=== PATIENT | male | born 1975 | race Caucasian/White ===

== ENCOUNTER 2019-02-16 23:32 | Emergency (ER) | payer OTHER ==
[2019-02-17] MEDS ORDERED: Ketorolac 60 MG/2 ML SDV IM ONE (00:02)
--- NOTE | 2019-02-17 00:09 | EDM.PDOC ---
ED HPI GENERAL MEDICAL PROBLEM - General Chief Complaint: Lower Extremity Injury/Pain Stated Complaint: PT HAS SWOLLEN LT ANKLE Time Seen by Provider: 02/16/19 23:54 - History of Present Illness INITIAL COMMENTS - FREE TEXT/NARRATIVE: HISTORY AND PHYSICAL: History of present illness: The patient is a 43-year-old male with multiple medical problems including CHF diabetes hypertension who is currently on warfarin therapy and presents with concerns about some swelling to the dorsal aspect of his left foot without pain and pain in his left knee. The patient has no chest pain or shortness of breath and says that he has had issues with his left knee locking up and feeling like it's going to hyperextend. There's been no swelling or warmth and he is concerned about his knee and would like evaluation. He is also concerned about swelling in the dorsal aspect of his left foot which is very localized as he has congestive heart failure and he is worried that he is having congestive heart failure. He also has a history of gout but says that this does not feel like his gout. Patient has crutches at home and says he was told that one of his knees had a meniscus tear is not sure if it is the left one. He does do a lot of walking stairclimbing bending and lifting at work and he is not sure if he aggravated it but he has not had any direct trauma to it that he is aware of. The patient tells me that he has had an MRI in the distant past of his knee but nothing recently. Review of systems: As per history of present illness and below otherwise all systems reviewed and negative. Past medical history: As per history of present illness and as reviewed below otherwise noncontributory. Surgical history: As per history of present illness and as reviewed below otherwise noncontributory. Social history: No reported history of drug or alcohol abuse. Family history: As per history of present illness and as reviewed below otherwise noncontributory. Physical exam: General: Well-developed well-nourished man who is nontoxic and vital signs are noted by me HEENT: Atraumatic, normocephalic, negative for conjunctival pallor or scleral icterus, mucous membranes moist, throat clear, neck supple, nontender, trachea midline. Lungs: Clear to auscultation, breath sounds equal bilaterally, chest nontender. No diminished air exchange no rales no wheezing or work or breathing Heart: S1S2, regular rate and rhythm no overt JVD clicks or rubs Abdomen: Soft, nondistended, nontender. Negative for masses or hepatosplenomegaly. NABS. Pelvis: Stable nontender. Genitourinary: Deferred. Rectal: Deferred. Extremities: Atraumatic, negative for cords or calf pain. Neurovascular unremarkable. He was only trace pedal edema and no leg asymmetry. There is some ill-defined soft tissue swelling of the dorsal aspect of left foot without any bony deformities crepitus defects or tenderness. At the left knee there is no fluid noted joint effusion no swelling no erythema no palpable bony deformities and the patient can range of motion. Neuro: Awake, alert, oriented. Cranial nerves II through XII unremarkable. Cerebellum unremarkable. Motor and sensory unremarkable throughout. Exam nonfocal. Diagnostics: X-ray left knee Therapeutics: Neoprene sleeve, patient has his own crutches, Toradol As the patient is on anticoagulation therapy I will only given him a few diclofenac for home and have advised close follow-up with the orthopedics clinic. He does have tramadol he can also use Impression: Left knee pain, medical evaluation of soft tissue swelling of foot stable Definitive disposition and diagnosis as appropriate pending reevaluation and review of above. Left Knee Pain Score (Numeric/FACES): 6 - Related Data Allergies Allergy/AdvReac Type Severity Reaction Status Date / Time No Known Allergies Allergy Verified 02/16/19 23:54 Home Meds: Home Meds Furosemide 20 mg PO DAILY 09/19/18 [History] Lisinopril 20 mg PO DAILY 09/19/18 [History] Metoprolol Succinate [Toprol XL 100mg] 100 mg PO DAILY 09/19/18 [History] Spironolactone [Aldactone] 25 mg PO DAILY 09/19/18 [History] Warfarin [Coumadin] 7.5 mg PO QPM 09/19/18 [History] atorvaSTATin [Lipitor] 20 mg PO BEDTIME 09/19/18 [History] metFORMIN [Glucophage] 850 mg PO BID 09/19/18 [History] traMADol [Ultram] 50 mg PO BID 02/16/19 [History] Past Medical History Cardiovascular History: Reports: Blood Clots/VTE/DVT, Heart Failure, High Cholesterol Other Cardiovascular History: CHF recently diagnosed in [place] 3 weeks ago. Gastrointestinal History: Reports: None Musculoskeletal History: Reports: Gout Neurological History: Reports: None Psychiatric History: Reports: Addiction Endocrine/Metabolic History: Reports: Diabetes, Type II - Infectious Disease History Infectious Disease History: Reports: Chicken Pox - Past Surgical History Cardiovascular Surgical History: Reports: None GI Surgical History: Reports: Cholecystectomy Neurological Surgical History: Reports: Lumbar Spine Musculoskeletal Surgical History: Reports: None Social & Family History - Family History Family Medical History: Noncontributory - Caffeine Use Caffeine Use: Reports: Coffee, Energy Drinks Review of Systems - Review of Systems Review Of Systems: ROS reveals no pertinent complaints other than HPI. ED EXAM, GENERAL - Physical Exam Exam: See Below (See dictation) Course - Vital Signs Last Recorded V/S: Last Vital Signs Temp 36.8 C 02/16/19 23:50 Pulse 80 02/16/19 23:50 Resp 20 02/16/19 23:50 BP 135/93 H 02/16/19 23:50 Pulse Ox 95 02/16/19 23:50 - Orders/Labs/Meds Orders: Active Orders 24 hr Category Date Time Status Knee 3V Lt [CR] Stat Exams 02/17/19 00:09 Taken DME for Discharge [COMM] Stat Oth 02/17/19 00:02 Ordered Meds: Medications Discontinued Medications Generic Name Dose Route Start Last Admin Trade Name Dawoodq PRN Reason Stop Dose Admin Ketorolac Tromethamine 60 mg 02/17/19 00:02 02/17/19 00:10 Toradol IM 02/17/19 00:03 60 mg ONETIME ONE Administration Departure - Departure Time of Disposition: 00:49 Disposition: Home, Self-Care 01 Condition: Good Clinical Impression: Left knee pain Qualifiers: Chronicity: unspecified Qualified Code(s): M25.562 - Pain in left knee - Discharge Information Referrals: Zheng Mireles MD [Primary Care Provider] - Forms: ED Department Discharge Additional Instructions: The following information is given to patients seen in the emergency department who are being discharged to home. This information is to outline your options for follow-up care. We provide all patients seen in our emergency department with a follow-up referral. The need for follow-up, as well as the timing and circumstances, are variable depending upon the specifics of your emergency department visit. If you don't have a primary care physician on staff, we will provide you with a referral. We always advise you to contact your personal physician following an emergency department visit to inform them of the circumstance of the visit and for follow-up with them and/or the need for any referrals to a consulting specialist. The emergency department will also refer you to a specialist when appropriate. This referral assures that you have the opportunity for followup care with a specialist. All of these measure are taken in an effort to provide you with optimal care, which includes your followup. Under all circumstances we always encourage you to contact your private physician who remains a resource for coordinating your care. When calling for followup care, please make the office aware that this follow-up is from your recent emergency room visit. If for any reason you are refused follow-up, please contact the [facility] emergency department at and ask to speak to the emergency department charge nurse. [facility]--Orthopedic clinic Professional [address] [id number] Try to not weight-bear and ice and elevate the area as much as possible and use the neoprene sleeve you have been given but remove this at bedtime. Use the crutches you have at home. Use the diclofenac you have been prescribed as well as the tramadol you have for pain management. Please call and follow-up in our orthopedics clinic using resources given to above for further care and evaluation and return to ER as needed and as discussed - My Orders Last 24 Hours: My Active Orders 02/17/19 00:02 DME for Discharge [COMM] Stat 02/17/19 00:09 Knee 3V Lt [CR] Stat - Assessment/Plan Last 24 Hours: My Active Orders 02/17/19 00:02 DME for Discharge [COMM] Stat 02/17/19 00:09 Knee 3V Lt [CR] Stat
--- NOTE | 2019-02-17 01:20 | CR ---
INDICATION: 3 images. knee pain. no prior TECHNIQUE: Left knee 3 views. COMPARISON: None. FINDINGS: Bones: Alignment is normal. No fractures or bone lesions. Joint spaces: Unremarkable. Soft tissues: Unremarkable. IMPRESSION: Unremarkable left knee. Dictated by: Zheng Calabrese MD @ 02/17/2019 01:19:34 (Electronically Signed)
== END 2019-02-17 01:04 | disposition home or self-care (01) ==
LOC: MW.ED 23:32
DX: M25.562 Pain in left knee (principal); E11.9 Type 2 diabetes mellitus without complications; I11.0 Hypertensive heart disease with heart failure; I50.9 Heart failure, unspecified; E78.00 Pure hypercholesterolemia, unspecified; Z79.01 Long term (current) use of anticoagulants; Z79.899 Other long term (current) drug therapy
CPT/HCPCS: 73562; 96372; 99283; J1885

== ENCOUNTER 2020-11-27 23:10 | Emergency (ER) | payer OTHER ==
[2020-11-27] MEDS ORDERED: Sodium Chloride 0.9% 10 ML Syringe FLUSH PRN (23:32)
[2020-11-27] MEDS ORDERED: Sodium Chloride 0.9% 2.5 ML Syringe FLUSH PRN (23:32)
--- NOTE | 2020-11-27 23:46 | EDM.PDOC ---
ED HPI GENERAL MEDICAL PROBLEM - General Chief Complaint: Abdominal Pain Stated Complaint: ABDOMINAL PAIN Time Seen by Provider: 11/27/20 23:23 - History of Present Illness INITIAL COMMENTS - FREE TEXT/NARRATIVE: 45-year-old male with history of diabetes and hypertension remote cholecystectomy no other abdominal surgeries presenting with intermittent severe cramping lower abdominal pain over the last 2 days associated with an urge to go but only able to go very small amount today he developed chills and sweating during an episode of pain. He reports fever at home. No diarrhea no nausea or vomiting pain is absent at this time but returns and cramping fashion. He ate some chicken noodle soup earlier today and the pain became more dull and constant. Currently 0 out of 10 pain. abd Pain Score (Numeric/FACES): 8 - Related Data Allergies Allergy/AdvReac Type Severity Reaction Status Date / Time No Known Allergies Allergy Verified 11/27/20 23:24 Home Meds: Home Meds Furosemide 20 mg PO DAILY 09/19/18 [History] Lisinopril 20 mg PO DAILY 09/19/18 [History] Metoprolol Succinate [Toprol XL 100mg] 100 mg PO DAILY 09/19/18 [History] Spironolactone [Aldactone] 25 mg PO DAILY 09/19/18 [History] metFORMIN [Glucophage] 850 mg PO BID 09/19/18 [History] Insulin Glarg,Human.Rec.Analog [Lantus] 1 unit .XX ASDIRECTED 11/27/20 [History] Semaglutide [Ozempic] 0.25 mg SQ Q7D 11/27/20 [History] Potassium Chloride [Klor-Con 10] 10 meq PO DAILY 5 Days #5 tab.er 11/28/20 [Rx] Past Medical History Cardiovascular History: Reports: Blood Clots/VTE/DVT, Heart Failure, High Cholesterol Other Cardiovascular History: CHF recently diagnosed in [place] 3 weeks ago. Gastrointestinal History: Reports: None Musculoskeletal History: Reports: Gout Neurological History: Reports: None Psychiatric History: Reports: Addiction Endocrine/Metabolic History: Reports: Diabetes, Type II - Infectious Disease History Infectious Disease History: Reports: Chicken Pox - Past Surgical History Cardiovascular Surgical History: Reports: None GI Surgical History: Reports: Cholecystectomy Neurological Surgical History: Reports: Lumbar Spine Musculoskeletal Surgical History: Reports: None Social & Family History - Family History Family Medical History: No Pertinent Family History - Caffeine Use Caffeine Use: Reports: Coffee, Energy Drinks ED ROS GENERAL - Review of Systems Review Of Systems: See Below Free Text/Narrative/Comment: General: No fever. Skin: No rash. Eyes: No vision problems. ENT: No sore throat. Neck: No neck stiffness. Respiratory: No shortness of breath. Cardiac: No chest pain. Gastrointestinal: Per HPI Urinary: No dysuria. Musculoskeletal: No myalgias/arthralgias. Neurologic: No headache. ED EXAM, GENERAL - Physical Exam Exam: See Below Free Text/Narrative:: General Appearance: No acute distress, appears comfortable Skin: No rash HEENT: Normocephalic/atraumatic, sclera anicteric, mucous membranes moist Neck: Normal range of motion Chest and Lungs: Bilateral breath sounds, clear to auscultation Cardiovascular: Regular rate and rhythm, no murmur Abdomen: Soft, bilateral lower quadrant tenderness greater on the left no guarding or rebound Back: Normal Musculoskeletal: No edema or tenderness Neurologic: Awake, alert, no obvious deficits, moving all extremities Psychiatric: Appropriate, cooperative Course - Vital Signs Last Recorded V/S: Last Vital Signs Temp 98.6 F 11/27/20 23:22 Pulse 107 H 11/28/20 00:58 Resp 18 11/28/20 00:58 BP 128/91 H 11/28/20 00:58 Pulse Ox 94 L 11/28/20 00:58 - Orders/Labs/Meds Orders: Active Orders 24 hr Category Date Time Status Potassium Chloride [Klor-Con M20] Med 11/28/20 01:17 Once 40 meq PO ONETIME ONE Sodium Chloride 0.9% [Saline Flush] Med 11/27/20 23:32 Active 10 ml FLUSH ASDIRECTED PRN Sodium Chloride 0.9% [Saline Flush] Med 11/27/20 23:32 Active 2.5 ml FLUSH ASDIRECTED PRN Saline Lock Insert [OM.PC] Stat Oth 11/27/20 23:32 Ordered Medication Orders Sodium Chloride (Saline Flush) 10 ml FLUSH ASDIRECTED PRN PRN Reason: Keep Vein Open Sodium Chloride (Saline Flush) 2.5 ml FLUSH ASDIRECTED PRN PRN Reason: Keep Vein Open Labs: Laboratory Tests 11/27/20 11/27/20 11/27/20 Range/Units 23:27 23:27 23:27 WBC 16.46 H (4.0-11.0) K/uL RBC 5.69 (4.50-5.90) M/uL Hgb 17.7 H (13.0-17.0) g/dL Hct 51.4 H (38.0-50.0) % MCV 90.3 (80.0-98.0) fL MCH 31.1 (27.0-32.0) pg MCHC 34.4 (31.0-37.0) g/dL RDW Std Deviation 43.2 (28.0-62.0) fl RDW Coeff of Aleida 13 (11.0-15.0) % Plt Count 191 (150-400) K/uL MPV 10.10 (7.40-12.00) fL Neut % (Auto) 79.0 (48.0-80.0) % Lymph % (Auto) 11.5 L (16.0-40.0) % [place] % (Auto) 8.9 (0.0-15.0) % Eos % (Auto) 0.5 (0.0-7.0) % Baso % (Auto) 0.1 (0.0-1.5) % Neut # (Auto) 13.0 H (1.4-5.7) K/uL Lymph # (Auto) 1.9 (0.6-2.4) K/uL [place] # (Auto) 1.5 H (0.0-0.8) K/uL Eos # (Auto) 0.1 (0.0-0.7) K/uL Baso # (Auto) 0.0 (0.0-0.1) K/uL Nucleated RBC % 0.0 /100WBC Nucleated RBCs # 0 K/uL Lactate 1.1 (0.20-2.00) mmol/L Sodium 137 (136-148) mmol/L Potassium 3.1 L (3.5-5.1) mmol/L Chloride 101 (98-107) mmol/L Carbon Dioxide 25.9 (21.0-32.0) mmol/L BUN 11 (7.0-18.0) mg/dL Creatinine 1.3 (0.8-1.3) mg/dL Est Cr Clr Drug Dosing 79.59 mL/min Estimated GFR (MDRD) 60.0 ml/min Glucose 179 H (74-106) mg/dL Calcium 8.7 (8.5-10.1) mg/dL Total Bilirubin 1.7 H (0.2-1.0) mg/dL AST 12 L (15-37) IU/L ALT 33 (14-63) IU/L Alkaline Phosphatase 93 (46-116) U/L Total Protein 7.7 (6.4-8.2) g/dL Albumin 3.6 (3.4-5.0) g/dL Globulin 4.1 H (2.6-4.0) g/dL Albumin/Globulin Ratio 0.9 (0.9-1.6) Lipase 112 (73-393) U/L Meds: Medications Generic Name Dose Route Start Last Admin Trade Name Freq PRN Reason Stop Dose Admin Sodium Chloride 10 ml 11/27/20 23:32 Saline Flush FLUSH ASDIRECTED PRN Keep Vein Open Sodium Chloride 2.5 ml 11/27/20 23:32 Saline Flush FLUSH ASDIRECTED PRN Keep Vein Open Discontinued Medications Generic Name Dose Route Start Last Admin Trade Name Freq PRN Reason Stop Dose Admin Iopamidol 100 ml 11/28/20 00:20 11/28/20 00:20 Isovue Multipack-370 (76%) IVPUSH 11/28/20 00:21 100 ml ONETIME STA Administration Lidocaine HCl Confirm 11/27/20 23:27 11/27/20 23:39 Xylocaine-Mpf 1% Administered 11/27/20 23:28 Not Given Dose 5 ml .ROUTE .STK-MED ONE Departure - Departure Time of Disposition: 01:19 Disposition: Home, Self-Care 01 Condition: Good Clinical Impression: Diverticulitis, Hypokalemia - Discharge Information *PRESCRIPTION DRUG MONITORING PROGRAM REVIEWED*: Not Applicable *COPY OF PRESCRIPTION DRUG MONITORING REPORT IN PATIENT YESENIA: Not Applicable Prescriptions: Potassium Chloride [Klor-Con 10] 10 meq PO DAILY 5 Days #5 tab.er Referrals: PCP,None [Primary Care Provider] - Forms: ED Department Discharge Additional Instructions: It is important you take the entire course of antibiotics even if you feel well after a few days. If you have a persistent fever your pain worsens or you have any other new symptoms that concern you is important you return to the ER. Otherwise please follow-up with your primary care doctor. You had some mildly low potassium as well today. 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 The dose needs to be low because of the spironolactone that you take. The following information is given to patients seen in the emergency department who are being discharged to home. This information is to outline your options for follow-up care. We provide all patients seen in our emergency department with a follow-up referral. The need for follow-up, as well as the timing and circumstances, are variable depending upon the specifics of your emergency department visit. If you don't have a primary care physician on staff, we will provide you with a referral. We always advise you to contact your personal physician following an emergency department visit to inform them of the circumstance of the visit and for follow-up with them and/or the need for any referrals to a consulting specialist. The emergency department will also refer you to a specialist when appropriate. This referral assures that you have the opportunity for follow-up care with a specialist. All of these measure are taken in an effort to provide you with optimal care, which includes your follow-up. Under all circumstances we always encourage you to contact your private physician who remains a resource for coordinating your care. When calling for follow-up care, please make the office aware that this follow-up is from your recent emergency room visit. If for any reason you are refused follow-up, please contact the [facility] Emergency Department at and asked to speak to the emergency department charge nurse. Sepsis Event Note (ED) - Evaluation Sepsis Screening Result: No Definite Risk - Focused Exam Vital Signs: Vital Signs Temp Pulse Resp BP Pulse Ox 11/28/20 00:58 107 H 18 128/91 H 94 L 11/27/20 23:22 98.6 F 127 H 20 162/117 H 95 - My Orders Last 24 Hours: My Active Orders 11/27/20 23:32 Sodium Chloride 0.9% [Saline Flush] 10 ml FLUSH ASDIRECTED PRN Sodium Chloride 0.9% [Saline Flush] 2.5 ml FLUSH ASDIRECTED PRN Saline Lock Insert [OM.PC] Stat 11/28/20 01:17 Potassium Chloride [Klor-Con M20] 40 meq PO ONETIME ONE - Assessment/Plan Last 24 Hours: My Active Orders 11/27/20 23:32 Sodium Chloride 0.9% [Saline Flush] 10 ml FLUSH ASDIRECTED PRN Sodium Chloride 0.9% [Saline Flush] 2.5 ml FLUSH ASDIRECTED PRN Saline Lock Insert [OM.PC] Stat 11/28/20 01:17 Potassium Chloride [Klor-Con M20] 40 meq PO ONETIME ONE Assessment:: 45-year-old male presented with signs and symptoms most consistent with constipation versus diverticulitis less likely appendicitis less likely small bowel obstruction but this was considered as well. Nothing to suggest renal colic nothing that suggest testicular process. Given his tenderness CBC CMP and CT abdomen pelvis ordered right now patient denies pain and so no medications at this time. Patient with a mild leukocytosis to 16. CT scan demonstrates moderately severe diverticulitis no abscess. Patient states that he feels well at this time. We discussed admission versus home with oral antibiotics. Patient would prefer a trial of home oral antibiotics initially. He understands that if he has persistent fevers worsening pain or other persistent symptoms he needs to return to the ER. He [place] only 10 minutes away. Patient also has some mild hypokalemia. He was given some oral supplementation here and a prescription was sent to the pharmacy for low-dose over just 4 days given his concurrent spironolactone use. Patient [facility] Sunday.
[2020-11-27 23:54] LABS: CARBON DIOXIDE,CO2 25.9 mmol/L (21.0-32.0); POTASSIUM,K 3.1 mmol/L (3.5-5.1)
[2020-11-28] MEDS ORDERED: Iopamidol 755 MG/ML 500 ML Multipack Bottle IVPUSH STA (00:20)
--- NOTE | 2020-11-28 01:05 | CT ---
INDICATION: lower abdominal pain and tenderness CT ABDOMEN AND PELVIS WITH CONTRAST TECHNIQUE: Multidetector CT imaging was performed through the abdomen and pelvis following intravenous contrast administration using 100 mL Isovue 370. Coronal and sagittal reconstructions were generated. COMPARISON: None. FINDINGS: Lower chest: Lung bases are clear. Liver: Diffuse fatty infiltration of the liver. Gallbladder and bile ducts: Status post cholecystectomy. No biliary dilation identified. Pancreas: Unremarkable. Spleen: Normal. Adrenals: No nodules or masses. Kidneys, ureters, and urinary bladder: No renal masses or hydronephrosis. Diffuse wall prominence of the urinary bladder due to nondistention. No bladder mass or definite pathologic wall thickening. Gastrointestinal tract: Normal caliber small bowel without wall thickening or obstruction. The appendix is normal. Multiple colon diverticula. Wall thickening of the proximal sigmoid colon with adjacent fat stranding, consistent with diverticulitis. Vascular structures: Normal for age. Peritoneum: Trace free fluid in the left pericolic gutter. No loculated fluid collection suggestive of abscess. No definite free air identified. Lymph nodes: No pathologically enlarged nodes identified. Reproductive organs: Borderline prostatic enlargement. Bones: Degenerative disc disease at L4-5. IMPRESSION: 1. Moderately severe diverticulitis of the proximal sigmoid colon. No evidence of abscess. 2. Nonacute additional findings as detailed above. CHRISTIANO WEAVER MD [employer] Dictated by Vance Weaver MD @ 11/28/2020 1:02:33 AM Dictated by: Vance Weaver MD @ 11/28/2020 01:04:06 (Electronically Signed)
[2020-11-28] MEDS ORDERED: Potassium Chloride 20 MEQ Tab.ER PO ONE (01:17)
== END 2020-11-28 01:41 | disposition home or self-care (01) ==
LOC: MW.ED 23:10
DX: K57.32 Diverticulitis of large intestine without perforation or abscess without bleeding (principal); E87.6 Hypokalemia; E11.9 Type 2 diabetes mellitus without complications; I11.0 Hypertensive heart disease with heart failure; I50.9 Heart failure, unspecified; M10.9 Gout, unspecified; Z79.4 Long term (current) use of insulin; Z79.899 Other long term (current) drug therapy
CPT/HCPCS: 36415; 74177; 80053; 83605; 83690; 85025; 99284; A9270; Q9967; 99283

== ENCOUNTER 2023-05-16 07:36 | Emergency (ER) | payer OTHER ==
[2023-05-16] MEDS ORDERED: Lisinopril 10 MG Tab PO ONE (08:53)
== END 2023-05-16 09:46 | disposition home or self-care (01) ==
LOC: MW.ED 07:36
DX: Z76.0 Encounter for issue of repeat prescription (principal); I11.0 Hypertensive heart disease with heart failure; I50.9 Heart failure, unspecified; E78.00 Pure hypercholesterolemia, unspecified; E11.9 Type 2 diabetes mellitus without complications; Z79.899 Other long term (current) drug therapy; Z79.4 Long term (current) use of insulin
CPT/HCPCS: 99283; A9270

== ENCOUNTER 2023-06-02 17:23 | Emergency (ER) | payer OTHER ==
[2023-06-02] MEDS ORDERED: Sodium Chloride 0.9% 10 ML Syringe FLUSH PRN (17:57)
[2023-06-02] MEDS ORDERED: Sodium Chloride 0.9% 2.5 ML Syringe FLUSH PRN (17:57)
[2023-06-02] MEDS ORDERED: Sodium Chloride 0.9% 1,000 ML IV STA (18:11)
[2023-06-02 18:18] LABS: BASE EXCESS VENOUS -1.1 (-2.0-3.0); PH,VENOUS 7.37 (7.31-7.41)
[2023-06-02 18:19] LABS: BASOPHILS PERCENT AUTO 0.3 % (0.0-1.5); EOSINOPHILS ABSOLUTE AUTO 0.2 K/uL (0.0-0.7); HEMATOCRIT 49.6 % (38.0-50.0); HEMOGLOBIN 17.5 g/dL (13.0-17.0); LYMPHOCYTES ABSOLUTE AUTO 1.9 K/uL (0.6-2.4); LYMPHOCYTES PERCENT AUTO 27.2 % (16.0-40.0); MEAN CORPUSCULAR HEMOGLOBIN 31.9 pg (27.0-32.0); MEAN CORPUSCULAR HGB CONC 35.3 g/dL (31.0-37.0); MEAN CORPUSCULAR VOLUME 90.3 fL (80.0-98.0); MONOCYTES ABSOLUTE AUTO 0.9 K/uL (0.0-0.8); NEUTROPHILS PERCENT AUTO 56.5 % (48.0-80.0); NRBC ABSOLUTE 0 K/uL; PLATELET COUNT,PLT 162 K/uL (150-400); RED BLOOD CELL COUNT 5.49 M/uL (4.50-5.90); WHITE BLOOD CELL COUNT,WBC 7.05 K/uL (4.0-11.0)
[2023-06-02 18:32] LABS: HEMOGLOBIN A1C 8.5 %
[2023-06-02 18:37] LABS: PHOSPHORUS 3.4 mg/dL (2.6-4.7)
[2023-06-02 18:38] LABS: A/G RATIO 0.9 (0.9-1.6); ALBUMIN 3.4 g/dL (3.4-5.0); BILIRUBIN TOTAL 0.4 mg/dL (0.2-1.0); CALCIUM 8.3 mg/dL (8.5-10.1); CREATININE 1.2 mg/dL (0.8-1.3); EST CRCL DRUG DOSING (CG) 84.43 mL/min; POTASSIUM,K 4.3 mmol/L (3.5-5.1); PROTEIN TOTAL,TP 7.1 g/dL (6.4-8.2)
[2023-06-02 18:41] LABS: APPEARANCE,URINE CLEAR; BILIRUBIN,URINE NEGATIVE (NEGATIVE); COLOR,URINE YELLOW; GLUCOSE,URINE >=1000 mg/dL (NEGATIVE); KETONES,URINE TRACE mg/dL (NEGATIVE); LEUKOCYTE ESTERASE,URINE NEGATIVE (NEGATIVE); NITRITE,URINE NEGATIVE (NEGATIVE); OCCULT BLOOD,URINE NEGATIVE (NEGATIVE); PROTEIN,URINE NEGATIVE (NEGATIVE)
[2023-06-02 18:49] LABS: AMPHETAMINES SCREEN, URINE NEGATIVE (CUTOFF=500); BARBITURATE SCREEN,URINE NEGATIVE (CUTOFF=200); BENZODIAZEPINES SCREEN,URINE NEGATIVE (CUTOFF=150); BUPRENORPHINE SCREEN,URINE NEGATIVE (CUTOFF=10); METHADONE SCREEN, URINE NEGATIVE (CUTOFF=200); METHAMPHETAMINES SCREEN, URINE NEGATIVE (CUTOFF=500); OXYCODONE SCREEN,URINE NEGATIVE (CUT0FF=100); PCP SCREEN,URINE NEGATIVE (CUTOFF=25); PROPOXYPHENE SCREEN,URINE NEGATIVE (CUTOFF=300); THC SCREEN,URINE 20 NG/ML NEGATIVE (CUTOFF=50)
== END 2023-06-02 19:35 | disposition home or self-care (01) ==
LOC: MW.ED 17:23
DX: E11.65 Type 2 diabetes mellitus with hyperglycemia (principal); I11.0 Hypertensive heart disease with heart failure; I50.9 Heart failure, unspecified; M10.9 Gout, unspecified; Z79.84 Long term (current) use of oral hypoglycemic drugs; Z79.899 Other long term (current) drug therapy
CPT/HCPCS: 36415; 80053; 80305; 80307; 81003; 82009; 82803; 82947; 83036; 83735; 84100; 85025; 93005; 96360; 99284; J3490; J7030; 93010